=== PATIENT | female | born 1985 | race Caucasian/White ===

== ENCOUNTER → 2017-12-05 | Outpatient (CLI) | payer OTHER ==
--- NOTE | 2017-12-06 08:28 | Diagnostic Imaging Report ---
#[id number] - [facility] 12/05/2017 No prior exams were available for comparison. Color flow and real-time ultrasound were performed on the entire right breast with scanning in all four quadrants, retroareolar region and the right axilla. -At the 8 o'clock position 3 cm from the nipple is a cluster of small cysts with a composite measurement of 6 mm. This is in the region of stated pain. -At the 6 o'clock subareoler region is an irregular cystic structure measuring 4 x 3 x 7 mm. IMPRESSION: PROBABLY BENIGN - FOLLOW-UP RECOMMENDED A follow-up ultrasound in 6 months is recommended to demonstrate stability of these two lesions. The patient was notified of the need for followup. Mariusz Conner Jr., D.O. cw/:12/05/2017 16:02:40 Commissary Steward: Champ Castillo [facility], [facility] letter sent: Followup Recommended Ultrasound BI-RADS: 3 Probably benign
--- NOTE | 2017-12-06 08:28 | Diagnostic Imaging Report ---
#[id number] - [facility] ULTRASOUND OF THE LEFT BREAST : 12/05/2017 No prior exams were available for comparison. Color flow and real-time ultrasound were performed on the entire left breast with scanning in all four quadrants, retroareolar region and the left axilla. There are no cystic or solid lesions identified. IMPRESSION: NEGATIVE There is no sonographic evidence of malignancy. A 3 year screening mammogram is recommended. Mariusz Conner Jr., D.O. cw/:12/05/2017 16:05:35 Multiplex Operator: Champ Castillo RDMS, [facility] letter sent: Normal Exam Ultrasound BI-RADS: 1 Negative
== END ==
LOC: US 12:27
PROVIDERS: ATTEND Internal Medicine
DX: N63.10 Unspecified lump in the right breast, unspecified quadrant (principal); N64.4 Mastodynia

== ENCOUNTER 2018-08-10 11:49 | Emergency (ER) | payer OTHER ==
[~2018-08-10] VITALS: Ht 175.3 cm; Wt 102.5 kg
--- OUTSIDE RECORDS SUMMARY | 2018-08-10 11:52 | XMS REPORT ---
Author Author [facility] Address Unknown Phone Unavailable Care Team Providers Care Ink Jet Operator Name Role Phone Derek HUFF Unavailable Unavailable Problems This patient has no known problems. Allergies, Adverse Reactions, Alerts This patient has no known allergies or adverse reactions. Medications This patient has no known medications. Results Test Description Test Time Test Comments Text Results Atomic Results Result Comments US BREAST COMPLETE LEFT 2017-12-05 15:42:00 [facility] [address] [address] Patient Name: SHANE PERDOMO MR #: [id number] : 1985 Age/Sex: 32/F Req #: [id number] [facility] Physician: Ordered by: MABEL HUFF MD Report #: [id number] Location: US Room/Bed: Procedure: [id number] US/US BREAST COMPLETE LEFT Exam Date: 12/05/17 Exam Time: 1313 REPORT STATUS: Signed #[id number] - [facility] ULTRASOUND OF THE LEFT BREAST : 12/05/2017 No prior exams were available for comparison. Color flow and real-time ultrasound were performed on the entire left breast with scanning in all four quadrants, retroareolar region and the left axilla. There are no cystic or solid lesions identified. IMPRESSION: NEGATIVE There is no sonographic evidence of malignancy. A 3 year screening mammogram is recommended. Иван Conner Jr., D.O. cw/:12/05/2017 16:05:35 Marketing Technology Coordinator: Champ Castillo RDMS, [facility] letter sent: Normal Exam Ultrasound BI-RADS: 1 Negative Dictated By: ИВАН CONNER DO 04 Transcribed By: MARGARITO on 12/05/171604 COPY TO: MABEL HUFF MD US BREAST COMPLETE RIGHT 2017-12-05 15:41:[address] [address] Patient Name: SHANE PERDOMO MR #: [id number] : 1985 Age/Sex: 32/F Req #: [id number] Adm Physician: Ordered by: MABEL HUFF MD Report #: [id number] Location: US Room/Bed: Procedure: [id number] US/US BREAST COMPLETE RIGHT Exam Date: 12/05/17 Exam Time: 1313 REPORT STATUS: Signed #[id number] [facility] : 12/05/2017 No prior exams were available for comparison. Color flow and real-time ultrasound were performed on the entire right breast with scanning in all four quadrants, retroareolar region and the right axilla. -At the 8 o'clock position 3 cm from the nipple is a cluster of small cysts with a composite measurement of 6 mm. This is in the region of stated pain. -At the 6 o'clock subareoler region is an irregular cystic structure measuring 4 x 3 x 7 mm. IMPRESSION: PROBABLY BENIGN - FOLLOW-UP RECOMMENDED A follow-up ultrasound in 6 months is recommended to demonstrate stability of these two lesions. The patient was notified of the need for followup. Иван Conner Jr., D.O. cw/:12/05/2017 16:02:40 Marketing Technology Coordinator: Champ Castillo RDID, [facility] letter sent: Followup Recommended Ultrasound BI-RADS: 3 Probably benign Dictated By: ИВАН CONNER DO 1602 Transcribed By: MARGARITO on 12/05/17 1602 COPY TO: MABEL HUFF MD
[2018-08-10] MEDS ORDERED: KETOROLAC TROMETHAMINE 30 MG/ML VIAL IV STA (12:44)
[2018-08-10] MEDS ORDERED: SODIUM CHLORIDE 0.9% 1000ML 1,000 ML IV STA (12:44)
[2018-08-10] MEDS ORDERED: METOCLOPRAMIDE HCL 10 MG/2ML VIAL IV ONE (12:45)
[2018-08-10] MEDS ORDERED: DIPHENHYDRAMINE HCL INJ 50 MG/ML VIAL IV ONE (12:45)
--- NOTE | 2018-08-10 13:05 | NUR ---
1240- 20G IV to Rt Hand, blood and urine colected and sent to lab 1305-NS 1L bolus to RT Hand 1305-Reglan 10mg Slow IVP Rt Hand 1308-Torodol 30mg slow IVP RT Hand 1311-Benadyl 25mg slow IVP to RT Hand
[2018-08-10 13:16] LABS: BASOPHILS % 0.5 % (0.0-1.0); EOSINOPHILS # (AUTO) 0.1 (0.0-0.4); EOSINOPHILS % 2.9 % (0.0-6.0); HEMATOCRIT 40.6 % (34.2-44.1); HEMOGLOBIN 13.2 g/dL (12.0-16.0); LYMPHOCYTES # (AUTO) 1.9 (1.0-3.2); LYMPHOCYTES % 50.9 % (18.0-39.1); MEAN CORPUSCULAR HGB CONC 32.5 g/dL (31-35); MEAN CORPUSCULAR VOLUME 86.2 fL (81-99); MONOCYTES # (AUTO) 0.4 (0.2-0.8); MONOCYTES % 11.8 % (4.4-11.3); NEUTROPHILS # (AUTO) 1.3 (2.1-6.9); NEUTROPHILS % 33.6 % (38.7-80.0); PLATELET COUNT 255 x10e3/uL (140-360); RED BLOOD COUNT 4.71 x10e6/uL (3.6-5.1); RED CELL DISTRIBUTION WIDTH 13.7 % (11.7-14.4)
[2018-08-10 13:18] LABS: BILIRUBIN,URINE NEGATIVE (NEGATIVE); CLARITY,URINE SL CLOUDY (CLEAR); COLOR,URINE YELLOW (YELLOW); KETONES,URINE NEGATIVE (NEGATIVE); LEUKOCYTE ESTERASE ,URINE NEGATIVE (NEGATIVE); NITRITE,URINE NEGATIVE (NEGATIVE); PROTEIN,URINE DIPSTICK NEGATIVE (NEGATIVE); URINE UROBILINOGEN 0.2 mg/dL (0.2 - 1)
[2018-08-10 13:35] LABS: ANION GAP 12.9 mmol/L (8-16); BLOOD UREA NITROGEN 10 mg/dL (7-26); BUN/CREATININE RATIO 14 (6-25); CALCIUM 8.7 mg/dL (8.4-10.2); CARBON DIOXIDE 20 mmol/L (22-29); CHLORIDE 106 mmol/L (98-107); CREATININE, SERUM 0.74 mg/dL (0.57-1.11); EST GLOMERULAR FILTRATION RATE > 60 ML/MIN (60-); GLUCOSE 82 mg/dL (74-118); POTASSIUM 3.9 mmol/L (3.5-5.1); SODIUM 135 mmol/L (136-145)
[2018-08-10 13:42] LABS: HCG,QUANTITATIVE < 1.20 mIU/mL (0-10)
[2018-08-10 13:44] LABS: TRICHOMONAS,URINE RARE
[2018-08-10 13:53] LABS: BACTERIA,URINE FEW /HPF; EPITHELIAL CELLS,URINE RARE /LPF
--- NOTE | 2018-08-10 13:57 | Diagnostic Imaging Report ---
History:Severe migraine Comparison studies: None Technique: Axial images were obtained from the skull base to the vertex. Coronal and sagittal reconstructions obtained from the axial data. Dose modulation, iterative reconstruction, and/or weight based adjustment of the mA/kV was utilized to reduce the radiation dose to as low as reasonably achievable. Findings: Scalp/skull: No abnormalities. No fractures, blastic or lytic lesions. Extra-axial spaces: No masses. No fluid collections. Brain sulci: Appropriate for age. Ventricles: Normal in size and configuration. No hydrocephalus. Parenchyma: No abnormal densities. No masses, hemorrhage, acute or chronic cortical vascular insults. Sellar/suprasellar region: No abnormalities Craniocervical junction: Patent foramen magnum. No Chiari one malformation. IMPRESSION: No abnormalities . Signed by: DR Julian Kat M.D. on 08/10/2018 1:54 PM
[2018-08-10] MEDS ORDERED: CEFTRIAXONE SOD 250 MG VIAL IM ONE (14:45)
[2018-08-10] MEDS ORDERED: AZITHROMYCIN 250 MG TAB PO ONE (14:45)
[2018-08-10 15:09] VITALS: BP 116/52
== END 2018-08-10 15:10 | disposition home or self-care (01) ==
LOC: ER 11:49
DX: G44.211 Episodic tension-type headache, intractable (principal); A59.01 Trichomonal vulvovaginitis; M54.2 Cervicalgia; M06.9 Rheumatoid arthritis, unspecified
CPT/HCPCS: 36415; 70450; 80048; 81001; 84702; 85025; 96372; 99284; J0696; J1200; J1885; J2765; J7030